=== PATIENT | female | born 1990 | race Caucasian/White ===

== ENCOUNTER 2016-10-01 23:51 | Emergency (ER) | payer OTHER ==
[~2016-10-01 23:51] MED LIST: ALBUTEROL17 GM INH; ARIXTRA2.5 MG/0.1 SQ; ATARAX PO; BACTRIM DS TABL1 TA1 PO; BACTROBAN22 GM TOP; CELEXA PO; CLINDAMYCIN HC300 MG PO; CONCERTA PO; CYMBALTA PO; ECOTRIN81 M1 PO; FLAGYL PO; FLEXERIL10 MG PO; FOLIC ACID PO; IBUPROFEN600 MG PO; KEFLEX500 M1 PO; KEFLEX500 MG PO; KEPPRA250 MG; LORTAB 5/500 TA1 TA1 PO; MACROBID100 M1 PO; MACROBID100 MG PO; MOTRIN600 MG PO; NAPROSYN500 MG PO; NEURONTIN800 MG PO; NO MEDICATIONS; NORCO 5/325 TAB1 TAB PO; PHENERGAN PO; PREDNISONE PO; PRENATAL1 TA1 PO; QUETIAPINE FUM200 MG PO; SANTYL15 G1 TP; SEROQUEL PO; SEROQUEL XR200 MG PO; ST. JOSEPH ASPI81 M3 PO; SUBOXONE 12 MG1 EACH; TOPAMAX PO; TRAZODONE PO; VIBRAMYCIN100 M1 PO; VISTARIL PO; VOLTAREN75 MG PO; ZITHROMAX1 G/PKT PO
[2017-01-10] MEDS ORDERED: GABAPENTIN (17:48)
[2017-01-10] MEDS ORDERED: DILANTIN (17:48)
== END 2016-10-02 03:35 | disposition home or self-care (01) ==
LOC: CED 23:51
DX: T40.1X1A Poisoning by heroin, accidental (unintentional), initial encounter (principal); F11.129 Opioid abuse with intoxication, unspecified; R56.9 Unspecified convulsions; F17.200 Nicotine dependence, unspecified, uncomplicated; Z79.899 Other long term (current) drug therapy; Z88.0 Allergy status to penicillin; Z88.8 Allergy status to other drugs, medicaments and biological substances; Z88.2 Allergy status to sulfonamides; Z88.1 Allergy status to other antibiotic agents; Z91.040 Latex allergy status
CPT/HCPCS: 99284

== ENCOUNTER 2016-10-31 17:35 | Emergency (ER) | payer OTHER ==
[2016-10-31 19:04] LABS: BASOPHIL% 0.2 % (0-2.5); EOSINOPHIL# 0.1 X10e3 (0-0.7); EOSINOPHIL% 0.5 % (0.0-7.0); HEMATOCRIT 37.4 % (35.0-45.0); HEMOGLOBIN 12.2 gm/dL (12.0-16.0); LYMPHOCYTE# 1.8 X10e3 (1.0-3.5); LYMPHOCYTE% 15.6 % (17.0-45.0); MEAN CELL VOLUME 82.2 FL (83-96); MEAN CORPUSCULAR HEMOGLOBIN 26.8 PG (28-34); MEAN CORPUSCULAR HGB CONC 32.7 g/dL (30-36); MEAN PLATELET VOLUME 9.1 FL (6.5-11.5); MONOCYTE# 0.6 X10e3 (0-1.0); MONOCYTE% 4.8 % (3.0-12.0); NEUTROPHIL# 9.3 X10e3 (1.5-7.1); NEUTROPHIL% 78.9 % (40-75); PLATELET COUNT 260 X10e3 (140-420); RED BLOOD COUNT 4.55 X10e (3.90-5.30); RED CELL DISTRIBUTION WIDTH 13.5 % (11.0-15.5); WHITE BLOOD COUNT 11.8 X10e3 (4.0-10.5)
[2016-10-31 19:05] LABS: DIFF IND NO
[2016-10-31 19:26] LABS: BLOOD UREA NITROGEN 11 mg/dL (9-23); BUN/CREATININE RATIO 12.22; CALCIUM SERUM 8.5 mg/dL (8.4-10.2); CARBON DIOXIDE 23 mmol/L (22-31); CHLORIDE 108 mmol/L (100-111); CREATININE SERUM 0.9 mg/dL (0.6-1.4); GLOM FILT RATE Estimated 88.9 mL/min (>60); GLUCOSE FASTING 86 mg/dL (70-110); POTASSIUM 3.4 mmol/L (3.5-5.1); SODIUM 138 mmol/L (135-145)
[2016-10-31 19:27] LABS: ALCOHOL BLOOD <5 mg/dL (0)
[2017-01-10] MEDS ORDERED: GABAPENTIN (17:48)
[2017-01-10] MEDS ORDERED: DILANTIN (17:48)
== END 2016-10-31 20:10 | disposition left against medical advice (07) ==
LOC: CED 17:35
PROVIDERS: Emergency Medicine
DX: F11.20 Opioid dependence, uncomplicated (principal); G43.909 Migraine, unspecified, not intractable, without status migrainosus; F31.9 Bipolar disorder, unspecified; F17.210 Nicotine dependence, cigarettes, uncomplicated; Z79.899 Other long term (current) drug therapy; Z88.0 Allergy status to penicillin; Z88.2 Allergy status to sulfonamides; Z88.8 Allergy status to other drugs, medicaments and biological substances; Z91.040 Latex allergy status
CPT/HCPCS: 80048; 82947; 85025; 96361; 96374; 96375; 99285; G0480; J2060; J2405

== ENCOUNTER 2016-11-05 21:27 | Emergency (ER) | payer OTHER ==
[~2016-11-05] VITALS: Ht 152.4 cm; Wt 49.0 kg
[2016-11-05] MEDS ORDERED: DILANTIN PO (21:55)
[2017-01-10] MEDS ORDERED: GABAPENTIN (17:48)
[2017-01-10] MEDS ORDERED: DILANTIN (17:48)
== END 2016-11-05 22:36 | disposition home or self-care (01) ==
LOC: SED 21:27
DX: T24.201A Burn of second degree of unspecified site of right lower limb, except ankle and foot, initial encounter (principal); F31.9 Bipolar disorder, unspecified; X08.8XXA Exposure to other specified smoke, fire and flames, initial encounter; Y92.410 Unspecified street and highway as the place of occurrence of the external cause
CPT/HCPCS: 99283

== ENCOUNTER 2016-12-08 15:48 | Emergency (ER) | payer OTHER ==
--- NOTE | ~2016-12-08 | CR21 ---
[facility] A Service of [facility] RADIOLOGY TEXT RESULTS PATIENT: DEAN HANSEN LOCATION: [facility] : [birth year] UNIT #: [id number] AGE: [address]: Armani Mckeon MD SEX: F ORDER DR: [id number] [facility] [address] [place], [place] [address] [id number] E MR#: [id number] Acc #: [id number] NAME: DEAN HANSEN : 1990 SEX: F STUDY DATE/TIME: 12/09/2016 9:03 UNIT: [facility] ROOM: STUDY DESCRIPTION: CR Ankle Min 3 Views Rt Attending Physician: Armani Mckeon M.D. Ordering Physician: Armani Mckeon M.D. Primary Care Physician: Primary Care Physician No MEDICAL IMAGING REPORT This report is preliminary unless electronic signature is present EXAM Right ankle 12/09 INDICATIONS Ankle pain. Patient found under direct this morning. Substance abuse. FINDINGS AP, lateral, and oblique projections of the ankle show satisfactory integrity of the joint mortise with a smooth articular surface. There is no identifiable fracture, dislocation, or radiopaque foreign body. IMPRESSION Normal ankle. Dictated by... Armani Gauthier Jr., M.D. THIS IS AN ELECTRONICALLY VERIFIED REPORT Armani Gauthier Jr., M.D. at 12/09/2016 3:48 PM MELVI/lore TD: 12/09/2016 13:34 JOB #: [id number] MEDICAL IMAGING REPORT Page 1 of 1 COPY
--- NOTE | ~2016-12-08 | CT71 ---
[facility] A Service of [facility] RADIOLOGY TEXT RESULTS PATIENT: DEAN HANSEN LOCATION: [facility] : [birth year] UNIT #: [id number] AGE: [address]: Armani Mckeon MD SEX: F ORDER DR: [id number] [facility] [address] [place], [place] [address] [id number] E MR#: [id number] Acc #: [id number] NAME: DEAN HANSEN. : 1990 SEX: F STUDY DATE/TIME: 12/08/2016 18:32 UNIT: [facility] ROOM: STUDY DESCRIPTION: CT Head Wo Contrast Attending Physician: Terence Fajardo M.D. Ordering Physician: Mabel Sheldon M.D. Primary Care Physician: No Primary Care Physician MEDICAL IMAGING REPORT This report is preliminary unless electronic signature is present EXAM CT head 12/08/2016 HISTORY Polysubstance abuse, found under deck per [employer], AMS, agitated, disoriented and anxious, repetitive. Patient found today, unknown how long she was there. Bipolar, drug abuse, hep C, clotting disorder, seizures. Ventriculoperitoneal shunt as infant. FINDINGS This CT exam was performed with one or more of the following radiation dose reduction techniques: Automatic exposure control, adjustment of mA and/or kV according to patient size, and iterative reconstruction. CT head performed skull base through vertex without intravenous contrast. Most recent comparison 02/12/2015. Brainstem unremarkable. Cerebellum and cerebral hemispheres show normal davis matter-white matter differentiation. There is no hemorrhage or acute cortical ischemia. The patient has a right transparietal ventriculoperitoneal shunt. The shunt is discontinuous between the parietal bone entry site and its transparietal path. It terminates adjacent to the corpus callosum in the anterior midline frontal lobes. This configuration is unchanged from prior examination in 2014. The midline structures are nondisplaced. There is mild overall ventricular enlargement, stable or perhaps marginally decreased from the prior examination. It certainly has not increased. There is no intra- or extraaxial mass effect or abnormal fluid collection. The intraorbital soft tissues show no acute abnormality. Mucosal thickening ethmoid and maxillary sinuses. No fracture. IMPRESSION 1. No acute abnormality is seen in brain. If patient has ongoing neurologic symptoms, consider followup imaging. 2. Redemonstrated is discontinuity of the patient's right transparietal STS. [facility] A Service of [facility] RADIOLOGY TEXT RESULTS PATIENT: DEAN HANSEN [id number] [birth year] UNIT #: [id number] AGE: [address]: Armani Mckeon MD SEX: F ORDER DR: ventricular shunt. No change in appearance compared to January 2015. Finding described as stable at that time, as well. The dominant shunt fragment continues to extend to the anterior frontal lobes, terminating adjacent to the anterior septum pellucidum. No change. There is mild ventricular enlargement, which is stable or perhaps marginally decreased compared to 2014. 3. No fracture. 4. Mild mucosal thickening ethmoid air cells and sphenoid sinuses. Dictated by... Gui Maloney M.D. THIS IS AN ELECTRONICALLY VERIFIED REPORT Gui Maloney M.D. at 12/09/2016 3:16 PM CYNTHIA/to TD: 12/08/2016 23:03 JOB #: [id number] MEDICAL IMAGING REPORT Page 1 of 1 COPY
[~2016-12-08 15:48] MED LIST changes: +DILANTIN PO
[2016-12-08 17:00] LABS: AMPHETAMINE POS (NEG); BARBITURATES NEG (NEG); BENZODIAZEPINES NEG (NEG); COCAINE NEG (NEG); MARIJUANA NEG (NEG); OPIATES POS (NEG); TRICYCLIC ANTIDEPRESSANTS NEG (NEG); U METHADONE NEG (NEG)
[2016-12-08 17:48] LABS: POC - CKMB 1.9 ng/mL (0.0-7.9); POC - TROPONIN <0.05 ng/mL (<=0.05)
[2016-12-08 17:51] LABS: BASOPHIL% 0.2 % (0-2.5); EOSINOPHIL# 0.1 X10e3 (0-0.7); EOSINOPHIL% 0.7 % (0.0-7.0); HEMATOCRIT 31.4 % (35.0-45.0); HEMOGLOBIN 10.4 gm/dL (12.0-16.0); LYMPHOCYTE# 0.4 X10e3 (1.0-3.5); LYMPHOCYTE% 4.3 % (17.0-45.0); MEAN CELL VOLUME 85.4 FL (83-96); MEAN CORPUSCULAR HEMOGLOBIN 28.4 PG (28-34); MEAN CORPUSCULAR HGB CONC 33.2 g/dL (30-36); MEAN PLATELET VOLUME 9.2 FL (6.5-11.5); MONOCYTE# 0.2 X10e3 (0-1.0); MONOCYTE% 1.8 % (3.0-12.0); NEUTROPHIL# 8.6 X10e3 (1.5-7.1); PLATELET COUNT 106 X10e3 (140-420); RED BLOOD COUNT 3.67 X10e (3.90-5.30); RED CELL DISTRIBUTION WIDTH 15.6 % (11.0-15.5); WHITE BLOOD COUNT 9.3 X10e3 (4.0-10.5)
[2016-12-08 17:52] LABS: DIFF IND NO
[2016-12-08 17:59] LABS: BLOOD UREA NITROGEN 28 mg/dL (9-23); CALCIUM SERUM 6.6 mg/dL (8.4-10.2); CARBON DIOXIDE 17 mmol/L (22-31); CHLORIDE 110 mmol/L (100-111); GLOM FILT RATE Estimated 77.7 mL/min (>60); GLUCOSE FASTING 84 mg/dL (70-110); POTASSIUM 3.2 mmol/L (3.5-5.1); SODIUM 135 mmol/L (135-145)
[2016-12-08 18:01] LABS: ALCOHOL BLOOD <5 mg/dL (0)
[2017-01-10] MEDS ORDERED: GABAPENTIN (17:48)
[2017-01-10] MEDS ORDERED: DILANTIN (17:48)
== END 2016-12-09 14:47 | disposition home or self-care (01) ==
LOC: CED 15:48
PROVIDERS: Emergency Medicine
DX: S93.401A Sprain of unspecified ligament of right ankle, initial encounter (principal); R41.82 Altered mental status, unspecified; T50.905A Adverse effect of unspecified drugs, medicaments and biological substances, initial encounter; X58.XXXA Exposure to other specified factors, initial encounter
CPT/HCPCS: 36415; 70450; 73610; 80048; 80307; 82550; 82553; 84484; 85025; 96361; 96374; 96375; 99285; G0480; J2060; J2310